=== PATIENT | male | born 1970 | race Caucasian/White ===

== ENCOUNTER 2016-11-17 19:52 | Emergency (ER) | payer SELFPAY ==
[2016-11-17] MEDS ORDERED: LIDOCAINE 1% 10 ML VIAL INJ ONE (20:03)
[2016-11-17] MEDS ORDERED: POVIDONE IODINE 10 % 15 ML UD TOP ONE (20:03)
[2016-11-17 20:37] VITALS: BP 170/96; TEMP 98.7; O2SAT 97
--- NOTE | 2016-11-17 20:40 | ED.PDOC ---
History of Present Illness - General Chief Complaint: Skin/Abrasion/Tear Stated Complaint: abscess to back Time Seen by Provider: 11/17/16 20:37 Source: patient, RN notes reviewed, Vital Signs reviewed Exam Limitations: no limitations Additional Information: Pt reports irritation to long-standing wound on back. Pt with EIC on his back that he says a friend's dog was biting and irritated. There is some redness to the crest of the EIC now. Pt denies fever/chills. No drainage currently. - History of Present Illness Timing/Duration: just prior to arrival - acute worsening of long-standing lesion Severity: mild Location: torso - on back Improving Factors: nothing Worsening Factors: movement Associated Symptoms: denies symptoms Allergies/Adverse Reactions: Allergies NO KNOWN ALLERGY Allergy (Verified 11/17/16 22:23) Home Medications: Ambulatory Orders Amoxicillin & Pot Clavulanate [Augmentin] 875 mg PO BID #14 tab 11/17/16 Review of Systems - Review of Systems Constitutional: States: no symptoms reported EENTM: States: no symptoms reported Respiratory: States: no symptoms reported Cardiology: States: no symptoms reported Gastrointestinal/Abdominal: States: no symptoms reported Genitourinary: States: no symptoms reported Musculoskeletal: States: no symptoms reported Skin: States: see HPI Neurological: States: no symptoms reported Endocrine: States: no symptoms reported Hematologic/Lymphatic: States: no symptoms reported Past Medical History (General) - Patient Medical History Hx Seizures: No Hx Stroke: No Hx Dementia: No Hx Asthma: No Hx of COPD: No Hx Cardiac Disorders: No Hx Congestive Heart Failure: No Hx Pacemaker: No Hx Hypertension: No Hx Thyroid Disease: No Hx Diabetes: No Hx Gastroesophageal Reflux: No Hx Renal Disease: No Hx Cancer: No Hx of HIV: No Hx Hepatitis C: No Hx MRSA: No - Vaccination History Hx Influenza Vaccination: No - Social History Hx Tobacco Use: Yes Family Medical History - Family History Mother Family History: Unknown Physical Exam - Physical Exam General Appearance: Alert, Comfortable, No apparent distress, Well Developed, Well Groomed, Well Hydrated, Well Nourished Eyes, Ears, Nose, Throat Exam: PERRL/EOMI, normal ENT inspection Neck: non-tender, full range of motion, supple Cardiovascular/Chest: normal peripheral pulses, regular rate, rhythm, no edema, no murmur Respiratory: no respiratory distress, no accessory muscle use Gastrointestinal/Abdominal: non tender, soft Back Exam: other - EIC seen upper back. Mild erythema to crest of EIC. NO drainage currently. Extremity: normal range of motion, non-tender, normal inspection Neurologic: lean six sigma black belt II-XII nml as tested, no motor/sensory deficits, alert, normal mood/affect, oriented x 3 Skin Problem Location: torso - on the back Skin Character: lesion - EIC with mild superficial erythema. Lymphatic: no adenopathy Progress - Progress Progress: 11/18/16 01:36 EIC mostly excised following linear incision. No obvious pus drainage noted. Pt tolerated procedure well. Started on antibiotics to protect from onset of infection given report of dog licking wound. - Results/Orders Results/Orders: 11/17/16 20:05 Temperature 98.7 F Pulse Rate [ 76 monitor] Respiratory 16 Rate Blood Pressure 170/96 [Right Arm] O2 Sat by Pulse 97 Oximetry Procedures - Incision and Drainage #1 Site: back - EIC Procedure and Prep: betadine prep, sterile drapes applied, wound culture collected, other - Linear incision made after field block with 1% lidocaine. Large amount of sebaceous material expressed from EIC. Linear incision reapproximated with 3 interrupted sutures using 3-0 Prolene. Blade Size: 11 Procedure Comments: Pt tolerated procedure well. Departure - Departure Clinical Impression: Epidermal inclusion cyst, Cellulitis of back, Smoking Hypertension Qualifiers: Hypertension type: essential hypertension Qualified Code(s): I10 - Essential ( primary) hypertension Time of Disposition: 22:25 Disposition: Discharge to Home or Self Care Departure Forms: ED Discharge - Pt. Copy, Patient Portal Self Enrollment Instructions: DI for Epidermal Cyst, DI for High Blood Pressure, How to Quit Smoking Prescriptions: Amoxicillin & Pot Clavulanate [Augmentin] 875 mg PO BID #14 tab Home Medications: Ambulatory Orders Amoxicillin & Pot Clavulanate [Augmentin] 875 mg PO BID #14 tab 11/17/16 Additional Instructions: Take full course of antibiotics. Keep wound clean and dry. No baths/submersion. Ok to let warm soapy water run over wound and then pat dry. Stitches should be removed in 10 to 14 days. Return to ER if condition worsens.
[2016-11-17] MEDS ORDERED: LIDOCAINE 1% 50 ML VIAL INJ ONE (21:48)
[2016-11-17] MEDS ORDERED: AMOXICILLIN & POT CLAVULANATE 875 MG TAB PO ONE (22:20)
== END 2016-11-17 22:27 | disposition home or self-care (01) ==
LOC: ER 19:52
DX: L03.312 Cellulitis of back [any part except buttock and flank] (principal); L72.0 Epidermal cyst; I10 Essential (primary) hypertension; Z87.891 Personal history of nicotine dependence

== ENCOUNTER → 2018-05-23 | Outpatient (CLI) | payer OTHER ==
--- NOTE | 2018-05-23 14:50 | CT ---
EXAM DESCRIPTION: Lower Extremity CLINICAL HISTORY: 48 years Male, SHADOW OBSERVED ON LEFT FEMUR ON LTERAL AND LATERAL OBLIQUE COMPARISON: None. TECHNIQUE: CT of the left hip and femur was performed without IV contrast. The femoral condyles and left knee are partially excluded from this exam. This exam was performed according to our departmental dose-optimization program, which includes automated exposure control, adjustment of the mA and/or kV according to patient size and/or use of iterative reconstruction technique. FINDINGS: There is no left hip or other left femoral fracture. The hip joint is anatomically aligned, and the acetabulum is intact. Visualized portions of the sacrum and left sacroiliac joint are unremarkable. No focal bone lesion or periostitis. The soft tissues are otherwise unremarkable. No left inguinal adenopathy. Occasional colonic diverticulosis is noted without diverticulitis. IMPRESSION: No left hip or other left femoral abnormality. Please note that the patient's prior radiographs are not available for comparison at the time of this dictation. If they become available, this report may be amended at that time. Colonic diverticulosis without diverticulitis. Electronically signed by: Jh Rivas MD 05/23/2018 2:49 PM [facility]
== END ==
LOC: CT 13:29
PROVIDERS: ATTEND Nurse Practitioner Family
DX: M79.605 Pain in left leg (principal); K57.30 Diverticulosis of large intestine without perforation or abscess without bleeding